=== PATIENT | female | born 1940 | race Caucasian/White ===

== ENCOUNTER 2019-03-26 14:04 | Inpatient (IN) ==
[2019-03-26] MEDS ORDERED: Ipratropium/Albuterol Neb 3 ML IH ONE (14:11)
[2019-03-26] MEDS ORDERED: 0.9 % Sodium Chloride 1,000 ML IVC SCH (14:15)
[2019-03-26 14:46] LABS: Basophils % 0.7 %; Eosinophils # 0.1 K/mcL (0.0-0.6); Eosinophils % 1.2 %; Hematocrit 33.6 % (35.3-44.9); Hemoglobin 9.7 g/dL (11.5-15.4); Immature Granulocytes % 0.3 % (0-4); Lymphocytes # 0.9 K/mcL (0.6-4.6); Lymphocytes % 14.3 %; Mean Corpuscular HGB Conc 28.9 g/dL (31.6-35.5); Mean Corpuscular Hemoglobin 23.7 pg (28.0-33.3); Mean Platelet Volume 10.2 fL (9.4-12.4); Monocytes # 0.7 K/mcL (0.0-1.3); Monocytes % 10.9 %; Platelet Count 316 K/mcL (140-400); Red Cell Distribution Width 16.7 % (11.5-14.5); Segmented Neutrophils % 72.6 %
[2019-03-26 14:47] LABS: Neutrophils # 4.4 K/mcL (1.6-8.9)
[2019-03-26 15:13] LABS: Bilirubin,Urine Negative (Negative); Blood,Urine Negative (Negative); Clarity,Urine Clear (Clear); Color,Urine Yellow (Yellow); Glucose,Urine (UA) Normal (Normal); Ketones,Urine Negative (Negative); Leukocyte Esterase,Urine Negative (Negative); Nitrite,Urine Negative (Negative); Protein,Urine Negative (Neg-Trace); Specific Gravity,Urine 1.011 (1.010-1.025); Urobilinogen,Urine Normal (Normal)
[2019-03-26 15:32] LABS: Alanine Aminotransferase 48 Units/L (7-52); Albumin 3.3 g/dL (3.5-5.7); Alkaline Phosphatase 66 Units/L (34-104); Aspartate Amino Transferase 46 Units/L (13-39); BUN/Creatinine Ratio 28 (6-26); Bilirubin,Total 0.5 mg/dL (0.3-1.0); Blood Urea Nitrogen 35 mg/dL (8-23); Calcium 8.4 mg/dL (8.6-10.3); Carbon Dioxide 30 mEq/L (23-29); Chloride 101 mEq/L (98-107); Globulin 3.4 g/dL (2.4-3.5); Glucose 177 mg/dL (70-105); Osmolality,Calculated 304 (280-300); Potassium 4.2 mEq/L (3.5-5.1); Sodium 141 mEq/L (136-145); Total Protein 6.7 g/dL (6.4-8.9); Troponin I < 0.03 ng/mL (< 0.04); eGFR For African Americans 49 (> 60); eGFR For Non-African Americans 41 (> 60)
[2019-03-26] MEDS ORDERED: Furosemide 40 MG/4 ML VIAL IVP ONE (15:37)
[2019-03-26 16:19] LABS: Hypochromasia Present (Not Present); Platelet Estimate Normal (Normal); Stomatocytes 1+ (Not Present)
[2019-03-26] MEDS ORDERED: Naloxone 0.4 MG/ML INJ IVP PRN (16:44)
[2019-03-26] MEDS ORDERED: D5% in Water 1,000 ML IVC PRN (16:45)
[2019-03-26] MEDS ORDERED: Dextrose Gel 15 GM/37.5 ML TUBE PO PRN ×2 (16:45)
[2019-03-26] MEDS ORDERED: *HR* Dextrose 50 % in Water (Syg) 50 ML SYRINGE IVP PRN (16:45)
[2019-03-26] MEDS: carvediloL 25 MG TABLET PO SCH (20:08)
[2019-03-26] MEDS: MOM Conc 10 ML UD.LIQ PO SCH (20:08)
[2019-03-26] MEDS: *HR* Dabigatran 150 MG CAPSULE PO SCH (20:08)
[2019-03-26] MEDS: Insulin DETEMIR 100 UNIT/ML X5UNITS SQ SCH (20:09)
[2019-03-26] MEDS: Ipratropium/Albuterol Neb 3 ML IH SCH (21:31)
[2019-03-26] MEDS ORDERED: Acetaminophen 325 MG TABLET PO ONE (23:33)
[2019-03-27] MEDS: Ipratropium/Albuterol Neb 3 ML IH SCH ×4 (04:08→21:56)
[2019-03-27 04:26] LABS: VBG HCO3 33 mEq/L (21-27); VBG PCO2 61 mmHg (41-51); VBG PH 7.34 pH Units (7.32-7.42); VBG PO2 75 mmHg (25-50)
[2019-03-27 04:28] LABS: Basophils % 0.6 %; Eosinophils # 0.1 K/mcL (0.0-0.6); Eosinophils % 1.7 %; Hematocrit 31.1 % (35.3-44.9); Hemoglobin 9.1 g/dL (11.5-15.4); Immature Granulocytes % 0.5 % (0-4); Lymphocytes # 1.1 K/mcL (0.6-4.6); Lymphocytes % 17.4 %; Mean Corpuscular HGB Conc 29.3 g/dL (31.6-35.5); Mean Corpuscular Hemoglobin 23.7 pg (28.0-33.3); Mean Platelet Volume 9.8 fL (9.4-12.4); Monocytes # 0.8 K/mcL (0.0-1.3); Monocytes % 11.9 %; Neutrophils # 4.3 K/mcL (1.6-8.9); Nucleated Red Blood Cells 0.3 /100 WBC (0); Platelet Count 269 K/mcL (140-400); Red Blood Count 3.84 M/mcL (3.82-4.97); Red Cell Distribution Width 16.7 % (11.5-14.5); Segmented Neutrophils % 67.9 %; White Blood Count 6.4 K/mcL (4.3-11.1)
[2019-03-27 04:54] LABS: % Iron Saturation 3 % (15-50); Iron 11 mcg/dL (50-170); Transferrin 277 mg/dL (203-362)
[2019-03-27 04:55] LABS: BUN/Creatinine Ratio 31 (6-26); Blood Urea Nitrogen 36 mg/dL (8-23); Calcium 8.4 mg/dL (8.6-10.3); Carbon Dioxide 30 mEq/L (23-29); Chloride 103 mEq/L (98-107); Glucose 84 mg/dL (70-105); Magnesium 2.2 mg/dL (1.6-2.6); Osmolality,Calculated 296 (280-300); Potassium 4.3 mEq/L (3.5-5.1); Sodium 139 mEq/L (136-145); Troponin I < 0.03 ng/mL (< 0.04); eGFR For African Americans 55 (> 60); eGFR For Non-African Americans 45 (> 60)
[2019-03-27 05:06] LABS: Ferritin 13 ng/mL (10-120)
[2019-03-27 05:12] LABS: Folate 11.4 ng/mL (3.0-16.0)
[2019-03-27] MEDS ORDERED: Iron Sucrose Complex 400 MG in 0.9 % Sodium Chloride 250 ML IVPB ONE (07:31)
[2019-03-27] MEDS ORDERED: Perflutren Lipid Microsphere 1.3 ML in 0.9 % Sodium Chloride 8.7 ML IVP ONE (08:26)
[2019-03-27] MEDS: Insulin LISPRO 300 UNITS/3 ML VIAL SQ SCH ×3 (09:57→16:45)
[2019-03-27] MEDS: *HR* Dabigatran 150 MG CAPSULE PO SCH ×2 (09:58→21:49)
[2019-03-27] MEDS: carvediloL 25 MG TABLET PO SCH ×2 (09:59→16:29)
[2019-03-27] MEDS: Furosemide 40 MG/4 ML VIAL IVP SCH ×2 (09:59→16:30)
[2019-03-27] MEDS: Cyanocobalamin (B-12) 1,000 MCG/ML VIAL SQ SCH (10:16)
[2019-03-27] MEDS: Insulin DETEMIR 100 UNIT/ML X5UNITS SQ SCH (21:35)
[2019-03-27] MEDS: MOM Conc 10 ML UD.LIQ PO SCH (21:49)
[2019-03-27] MEDS: traZODone 50 MG TABLET PO SCH (21:50)
[2019-03-27] MEDS: Multivit/Ca/Min/Fe/FA 1 TAB TABLET PO SCH (21:50)
[2019-03-27] MEDS: hydrOXYzine pamoate 25 MG CAPSULE PO PRN (21:50)
[2019-03-28] MEDS: Ipratropium/Albuterol Neb 3 ML IH SCH ×4 (03:36→22:35)
[2019-03-28 05:28] LABS: Hematocrit 29.6 % (35.3-44.9); Hemoglobin 8.6 g/dL (11.5-15.4); Mean Corpuscular HGB Conc 29.1 g/dL (31.6-35.5); Mean Corpuscular Hemoglobin 24.4 pg (28.0-33.3); Mean Corpuscular Volume 84.1 fL (83.0-100.0); Mean Platelet Volume 10.6 fL (9.4-12.4); Platelet Count 251 K/mcL (140-400); Red Blood Count 3.52 M/mcL (3.82-4.97); Red Cell Distribution Width 16.9 % (11.5-14.5); White Blood Count 6.4 K/mcL (4.3-11.1)
[2019-03-28 05:47] LABS: Calcium 8.4 mg/dL (8.6-10.3); Magnesium 2.4 mg/dL (1.6-2.6); Potassium 4.1 mEq/L (3.5-5.1)
[2019-03-28] MEDS: hydrOXYzine pamoate 25 MG CAPSULE PO PRN ×2 (05:50→20:46)
[2019-03-28] MEDS: *HR* Dabigatran 150 MG CAPSULE PO SCH ×2 (07:47→20:46)
[2019-03-28] MEDS: Insulin LISPRO 300 UNITS/3 ML VIAL SQ SCH ×3 (07:47→17:15)
[2019-03-28] MEDS: carvediloL 25 MG TABLET PO SCH ×2 (07:48→17:06)
[2019-03-28] MEDS: Multivit/Ca/Min/Fe/FA 1 TAB TABLET PO SCH (07:48)
[2019-03-28] MEDS: Cyanocobalamin (B-12) 1,000 MCG/ML VIAL SQ SCH (07:49)
[2019-03-28] MEDS: Furosemide 40 MG/4 ML VIAL IVP SCH (07:49)
[2019-03-28] MEDS: (Linaclotide [Linzess] 145 MCG) PO SCH (07:49)
[2019-03-28] MEDS: Spironolactone 25 MG TABLET PO SCH (17:36)
[2019-03-28] MEDS: traZODone 50 MG TABLET PO SCH (20:46)
[2019-03-28] MEDS: MOM Conc 10 ML UD.LIQ PO SCH (20:46)
[2019-03-28] MEDS: Azithromycin 500 MG in 0.9 % Sodium Chloride 250 ML IVPB SCH (20:46)
[2019-03-28] MEDS: Insulin DETEMIR 100 UNIT/ML X5UNITS SQ SCH (20:59)
[2019-03-28] MEDS: Ondansetron 4 MG/2 ML VIAL IVP PRN (21:53)
[2019-03-29] MEDS: Ipratropium/Albuterol Neb 3 ML IH SCH ×4 (04:19→22:35)
[2019-03-29 04:49] LABS: Basophils % 0.4 %; Nucleated Red Blood Cells 0.4 /100 WBC (0)
[2019-03-29 04:50] LABS: Eosinophils # 0.1 K/mcL (0.0-0.6); Eosinophils % 1.9 %; Hemoglobin 8.1 g/dL (11.5-15.4); Immature Granulocytes % 0.6 % (0-4); Lymphocytes # 0.9 K/mcL (0.6-4.6); Lymphocytes % 13.3 %; Mean Corpuscular HGB Conc 28.9 g/dL (31.6-35.5); Mean Corpuscular Hemoglobin 23.8 pg (28.0-33.3); Mean Corpuscular Volume 82.4 fL (83.0-100.0); Mean Platelet Volume 10.3 fL (9.4-12.4); Monocytes # 0.8 K/mcL (0.0-1.3); Monocytes % 11.7 %; Neutrophils # 4.9 K/mcL (1.6-8.9); Platelet Count 251 K/mcL (140-400); Red Cell Distribution Width 17.1 % (11.5-14.5); Segmented Neutrophils % 72.1 %; White Blood Count 6.8 K/mcL (4.3-11.1)
[2019-03-29 05:01] LABS: Calcium 7.2 mg/dL (8.6-10.3); Magnesium 2.4 mg/dL (1.6-2.6); Potassium 4.3 mEq/L (3.5-5.1)
[2019-03-29 05:16] LABS: Platelet Estimate Normal (Normal)
[2019-03-29 05:17] LABS: Anisocytosis 1+ (Not Present); Hypochromasia Present (Not Present)
[2019-03-29] MEDS: carvediloL 25 MG TABLET PO SCH ×2 (08:07→16:54)
[2019-03-29] MEDS: Multivit/Ca/Min/Fe/FA 1 TAB TABLET PO SCH (08:07)
[2019-03-29] MEDS: Cyanocobalamin (B-12) 1,000 MCG/ML VIAL SQ SCH (08:07)
[2019-03-29] MEDS: *HR* Dabigatran 150 MG CAPSULE PO SCH ×2 (08:07→21:14)
[2019-03-29] MEDS: Spironolactone 25 MG TABLET PO SCH (08:08)
[2019-03-29] MEDS: Iron Sucrose Complex 250 MG in 0.9 % Sodium Chloride 250 ML IVPB SCH (08:10)
[2019-03-29] MEDS: Insulin LISPRO 300 UNITS/3 ML VIAL SQ SCH ×3 (08:11→16:55)
[2019-03-29] MEDS: (Linaclotide [Linzess] 145 MCG) PO SCH (08:12)
[2019-03-29 08:53] LABS: Estimated Average Glucose 200 mg/dl
[2019-03-29] MEDS ORDERED: Furosemide 40 MG/4 ML VIAL IVP SCH (09:00)
[2019-03-29] MEDS: Azithromycin 500 MG in 0.9 % Sodium Chloride 250 ML IVPB SCH (21:13)
[2019-03-29] MEDS: Ondansetron 4 MG/2 ML VIAL IVP PRN (21:14)
[2019-03-29] MEDS: hydrOXYzine pamoate 25 MG CAPSULE PO PRN (21:14)
[2019-03-29] MEDS: Insulin DETEMIR 100 UNIT/ML X5UNITS SQ SCH (21:16)
[2019-03-29] MEDS: traZODone 50 MG TABLET PO SCH (21:16)
[2019-03-29] MEDS: MOM Conc 10 ML UD.LIQ PO SCH (21:16)
[2019-03-29] MEDS ORDERED: 0.9 % Sodium Chloride 500 ML IVC ONE (22:26)
[2019-03-29] MEDS ORDERED: Albumin 25% 25gram/100mL 25 GM/100 ML IV.SOLN IVPB ONE ×2 (22:26→22:27)
[2019-03-29] MEDS ORDERED: 0.9 % Sodium Chloride 1,000 ML ONE (22:30)
[2019-03-29 22:35] LABS: ABG Base Excess 2 mEq/L (-2 to 3); ABG HCO3 29 mEq/L (21-27); ABG Oxygen Saturation 94 % (95-98); ABG PCO2 53 mmHg (35-45); ABG PH 7.34 pH Units (7.32-7.45); ABG PO2 78 mmHg (85-104); ABG TCO2 30 mEq/L (20-26)
[2019-03-29] MEDS ORDERED: Isovue-370 500 ML BOTTLE IVP ONE (22:45)
[2019-03-29 22:52] LABS: Basophils % 0.4 %; Immature Granulocytes % 0.4 % (0-4); Nucleated Red Blood Cells 1.6 /100 WBC (0)
[2019-03-29 22:53] LABS: Eosinophils # 0.2 K/mcL (0.0-0.6); Eosinophils % 2.6 %; Hematocrit 29.6 % (35.3-44.9); Hemoglobin 8.4 g/dL (11.5-15.4); Lymphocytes # 1.2 K/mcL (0.6-4.6); Lymphocytes % 17.3 %; Mean Corpuscular HGB Conc 28.4 g/dL (31.6-35.5); Mean Corpuscular Hemoglobin 24.3 pg (28.0-33.3); Mean Corpuscular Volume 85.5 fL (83.0-100.0); Mean Platelet Volume 10.3 fL (9.4-12.4); Monocytes # 0.8 K/mcL (0.0-1.3); Monocytes % 12.3 %; Neutrophils # 4.6 K/mcL (1.6-8.9); Platelet Count 247 K/mcL (140-400); Red Blood Count 3.46 M/mcL (3.82-4.97); Red Cell Distribution Width 17.2 % (11.5-14.5); White Blood Count 6.8 K/mcL (4.3-11.1)
[2019-03-29 22:57] LABS: INR 1.9
[2019-03-29 23:00] LABS: Activated Partial Thrombo Time 71.1 Seconds (26.0-36.0)
[2019-03-29 23:16] LABS: Alanine Aminotransferase 28 Units/L (7-52); Albumin 3.1 g/dL (3.5-5.7); Alkaline Phosphatase 68 Units/L (34-104); Aspartate Amino Transferase 18 Units/L (13-39); BUN/Creatinine Ratio 25 (6-26); Bilirubin,Total 0.4 mg/dL (0.3-1.0); Blood Urea Nitrogen 50 mg/dL (8-23); Calcium 8.1 mg/dL (8.6-10.3); Carbon Dioxide 27 mEq/L (23-29); Chloride 99 mEq/L (98-107); Globulin 3.2 g/dL (2.4-3.5); Glucose 234 mg/dL (70-105); Hypochromasia Present (Not Present); Osmolality,Calculated 301 (280-300); Platelet Clumps Few (Not Present); Platelet Estimate Normal (Normal); Potassium 5.1 mEq/L (3.5-5.1); Sodium 135 mEq/L (136-145); Total Protein 6.3 g/dL (6.4-8.9); Troponin I < 0.03 ng/mL (< 0.04); eGFR For African Americans 30 (> 60); eGFR For Non-African Americans 25 (> 60)
[2019-03-29 23:17] LABS: Anisocytosis 1+ (Not Present)
[2019-03-30 03:22] LABS: Basophils % 0.4 %; Eosinophils # 0.1 K/mcL (0.0-0.6); Eosinophils % 1.9 %; Hematocrit 28.6 % (35.3-44.9); Hemoglobin 8.4 g/dL (11.5-15.4); Immature Granulocytes % 0.6 % (0-4); Lymphocytes # 0.8 K/mcL (0.6-4.6); Mean Corpuscular HGB Conc 29.4 g/dL (31.6-35.5); Mean Corpuscular Hemoglobin 24.2 pg (28.0-33.3); Mean Corpuscular Volume 82.4 fL (83.0-100.0); Mean Platelet Volume 10.4 fL (9.4-12.4); Monocytes # 0.8 K/mcL (0.0-1.3); Monocytes % 11.5 %; Neutrophils # 5.4 K/mcL (1.6-8.9); Nucleated Red Blood Cells 0.6 /100 WBC (0); Platelet Count 238 K/mcL (140-400); Red Blood Count 3.47 M/mcL (3.82-4.97); Red Cell Distribution Width 17.1 % (11.5-14.5); Segmented Neutrophils % 74.6 %; White Blood Count 7.2 K/mcL (4.3-11.1)
[2019-03-30] MEDS: Ipratropium/Albuterol Neb 3 ML IH SCH ×4 (03:31→22:56)
[2019-03-30 03:41] LABS: Calcium 8.2 mg/dL (8.6-10.3); Potassium 5.1 mEq/L (3.5-5.1)
[2019-03-30] MEDS: *HR* Dabigatran 150 MG CAPSULE PO SCH (08:41)
[2019-03-30] MEDS: Cyanocobalamin (B-12) 1,000 MCG/ML VIAL SQ SCH (08:42)
[2019-03-30] MEDS: Multivit/Ca/Min/Fe/FA 1 TAB TABLET PO SCH (08:43)
[2019-03-30] MEDS: Iron Sucrose Complex 250 MG in 0.9 % Sodium Chloride 250 ML IVPB SCH (08:43)
[2019-03-30] MEDS: Insulin LISPRO 300 UNITS/3 ML VIAL SQ SCH ×3 (08:55→17:05)
[2019-03-30] MEDS: hydrOXYzine pamoate 25 MG CAPSULE PO PRN ×2 (09:18→21:51)
[2019-03-30] MEDS: (Linaclotide [Linzess] 145 MCG) PO SCH (12:01)
[2019-03-30] MEDS: Nystatin POWDER 30 GM BOTTLE TP SCH ×2 (15:49→21:59)
[2019-03-30] MEDS: Lactulose Oral Soln 20 GM/30 ML UDC PO SCH ×2 (15:50→20:24)
[2019-03-30] MEDS: carvediloL 6.25 MG TABLET PO SCH (17:00)
[2019-03-30] MEDS: *HR* Dabigatran 75 MG CAPSULE PO SCH (20:23)
[2019-03-30] MEDS: traZODone 50 MG TABLET PO SCH (20:23)
[2019-03-30] MEDS: Insulin DETEMIR 100 UNIT/ML X5UNITS SQ SCH (20:24)
[2019-03-30] MEDS: Azithromycin 500 MG in 0.9 % Sodium Chloride 250 ML IVPB SCH (20:24)
[2019-03-30] MEDS: Ondansetron 4 MG/2 ML VIAL IVP PRN (21:47)
[2019-03-30] MEDS: Pantoprazole 40 MG in 0.9 % Sodium Chloride Mini Bag 100 ML IVC SCH (23:15)
[2019-03-30 23:39] LABS: Hematocrit 30.1 % (35.3-44.9); Hemoglobin 8.7 g/dL (11.5-15.4)
[2019-03-31] MEDS ORDERED: Mag Hydrox/Al Hydrox/Simeth 30 ML UDC PO ONE (00:23)
[2019-03-31] MEDS ORDERED: Acetaminophen IV 1,000 MG/100 ML INFUS..BTL IVPB ONE (03:12)
[2019-03-31 03:35] LABS: Mean Platelet Volume 10.1 fL (9.4-12.4)
[2019-03-31 03:37] LABS: Basophils % 0.5 %; Eosinophils # 0.1 K/mcL (0.0-0.6); Hemoglobin 9.2 g/dL (11.5-15.4); Immature Granulocytes % 1.2 % (0-4); Lymphocytes # 0.6 K/mcL (0.6-4.6); Lymphocytes % 9.5 %; Mean Corpuscular HGB Conc 28.8 g/dL (31.6-35.5); Mean Corpuscular Hemoglobin 23.8 pg (28.0-33.3); Mean Corpuscular Volume 82.9 fL (83.0-100.0); Monocytes # 0.5 K/mcL (0.0-1.3); Monocytes % 8.8 %; Neutrophils # 4.7 K/mcL (1.6-8.9); Nucleated Red Blood Cells 1.5 /100 WBC (0); Platelet Count 286 K/mcL (140-400); Red Blood Count 3.86 M/mcL (3.82-4.97); Red Cell Distribution Width 17.4 % (11.5-14.5)
[2019-03-31] MEDS: Ipratropium/Albuterol Neb 3 ML IH SCH ×4 (03:44→21:58)
[2019-03-31] MEDS: Pantoprazole 40 MG in 0.9 % Sodium Chloride Mini Bag 100 ML IVC SCH ×2 (03:52→10:15)
[2019-03-31 04:04] LABS: Albumin 3.7 g/dL (3.5-5.7); Albumin/Globulin Ratio 1.2 (1.1-2.2); Bilirubin,Direct 0.2 mg/dL (0.0-0.2); Bilirubin,Indirect 0.3 mg/dL (0.0-1.0); Bilirubin,Total 0.5 mg/dL (0.3-1.0); Total Protein 6.7 g/dL (6.4-8.9)
[2019-03-31 04:06] LABS: Calcium 8.7 mg/dL (8.6-10.3); Magnesium 3.3 mg/dL (1.6-2.6); Potassium 5.2 mEq/L (3.5-5.1)
[2019-03-31 04:23] LABS: Anisocytosis 1+ (Not Present); Hypochromasia Present (Not Present); Polychromasia 1+ (Not Present)
[2019-03-31 04:24] LABS: Basophilic Stippling 1+ (Not Present); Platelet Estimate Normal (Normal)
[2019-03-31] MEDS ORDERED: Morphine Sulfate 2 MG/ML SYRINGE IVP ONE (04:32)
[2019-03-31] MEDS ORDERED: CefOXitin 1,000 MG VIAL ONE (05:06)
[2019-03-31] MEDS ORDERED: Heparin 1,000 UNITS/500 mL 500 ML ONE (05:11)
[2019-03-31] MEDS ORDERED: *HR* Rocuronium Bromide 50 MG/5 ML VIAL ONE (05:25)
[2019-03-31] MEDS ORDERED: *HR* Etomidate 40 MG/20 ML VIAL IVP ONE (05:25)
[2019-03-31] MEDS ORDERED: Lidocaine -MPF 2% 2 ML VIAL ONE (05:25)
[2019-03-31] MEDS ORDERED: *HR* Succinylcholine 200 MG/10 ML VIAL IVP ONE (05:25)
[2019-03-31] MEDS ORDERED: Dexamethasone 4 MG/ML VIAL ONE (05:25)
[2019-03-31] MEDS ORDERED: Ondansetron 4 MG/2 ML VIAL ONE (05:25)
[2019-03-31] MEDS ORDERED: Ringers Solution, Lactated 1,000 ML ONE (05:25)
[2019-03-31 05:36] LABS: Hepatitis B Surface Antigen Nonreactive (Nonreactive)
[2019-03-31] MEDS ORDERED: *HR* Vasopressin 20 UNIT/ML VIAL ONE (05:43)
[2019-03-31 06:05] LABS: Hepatitis C Virus Antibody Nonreactive (Nonreactive)
[2019-03-31 06:06] LABS: Hepatitis A Antibody IgM Nonreactive (Nonreactive)
[2019-03-31] MEDS ORDERED: *HR* FentaNYL (PF) 100 MCG/2 ML VIAL ONE (06:24)
[2019-03-31] MEDS ORDERED: *HR* Phenylephrine 10 MG/ML VIAL ONE (06:51)
[2019-03-31] MEDS ORDERED: Pantoprazole 40 MG in 0.9 % Sodium Chloride Mini Bag 100 ML IVC SCH (09:10)
[2019-03-31] MEDS ORDERED: Ondansetron 4 MG/2 ML VIAL IVP PRN (09:10)
[2019-03-31] MEDS ORDERED: Naloxone 0.4 MG/ML INJ IVP PRN (09:10)
[2019-03-31] MEDS ORDERED: Dextrose Gel 15 GM/37.5 ML TUBE PO PRN ×2 (09:10)
[2019-03-31] MEDS ORDERED: D5% in Water 1,000 ML IVC PRN (09:10)
[2019-03-31] MEDS ORDERED: Artificial Tears SOLN 15 ML BOTTLE BOTH EYES PRN (09:32)
[2019-03-31] MEDS: *HR* Dextrose 50 % in Water (Syg) 50 ML SYRINGE IVP PRN ×2 (09:40→23:45)
[2019-03-31] MEDS: Dexmedetomidine HCl 400 MCG/100 ML MLS IVC SCH ×3 (09:50→20:00)
[2019-03-31] MEDS ORDERED: *HR* FentaNYL (PF) 100 MCG/2 ML VIAL IVP ONE (10:01)
[2019-03-31] MEDS ORDERED: *HR* LORazepam 2 MG/ML VIAL ONE (10:02)
[2019-03-31] MEDS ORDERED: *HR* LORazepam 2 MG/ML VIAL IVP ONE (10:08)
[2019-03-31] MEDS: carvediloL 6.25 MG TABLET PO SCH (10:14)
[2019-03-31] MEDS: *HR* Dabigatran 75 MG CAPSULE PO SCH (10:15)
[2019-03-31] MEDS: Lactulose Oral Soln 20 GM/30 ML UDC PO SCH (10:15)
[2019-03-31] MEDS: Insulin LISPRO 300 UNITS/3 ML VIAL SQ SCH ×3 (10:15→18:19)
[2019-03-31] MEDS: Nystatin POWDER 30 GM BOTTLE TP SCH ×3 (10:15→20:00)
[2019-03-31] MEDS: (Linaclotide [Linzess] 145 MCG) PO SCH (10:15)
[2019-03-31] MEDS: Cyanocobalamin (B-12) 1,000 MCG/ML VIAL SQ SCH (10:16)
[2019-03-31] MEDS: Multivit/Ca/Min/Fe/FA 1 TAB TABLET PO SCH (10:16)
[2019-03-31] MEDS: FentaNYL (PF) 1,000 MCG in 0.9 % Sodium Chloride 80 ML IVC SCH (10:17)
[2019-03-31 10:42] LABS: ABG Base Excess 3 mEq/L (-2 to 3); ABG HCO3 29 mEq/L (21-27); ABG Oxygen Saturation 100 % (95-98); ABG PCO2 49 mmHg (35-45); ABG PH 7.37 pH Units (7.32-7.45); ABG PO2 367 mmHg (85-104); ABG TCO2 30 mEq/L (20-26); Blood Gas Modality AF; Blood Gas VT 450 cc
[2019-03-31] MEDS ORDERED: Insulin LISPRO 300 UNITS/3 ML VIAL SQ SCH (12:00)
[2019-03-31] MEDS: Phenylephrine 10 MG in 0.9 % Sodium Chloride 250 ML IVC SCH (13:46)
[2019-03-31] MEDS: Artificial Tears SOLN 15 ML BOTTLE BOTH EYES SCH ×3 (13:50→19:59)
[2019-03-31] MEDS: Norepinephrine 4 MG in 0.9 % Sodium Chloride 250 ML IVC SCH ×2 (13:50→21:50)
[2019-03-31 14:27] LABS: Basophils % 0.1 %; Hematocrit 25.5 % (35.3-44.9); Immature Granulocytes % 0.4 % (0-4); Lymphocytes # 0.5 K/mcL (0.6-4.6); Lymphocytes % 4.3 %; Mean Corpuscular HGB Conc 29.4 g/dL (31.6-35.5); Mean Corpuscular Hemoglobin 24.1 pg (28.0-33.3); Mean Platelet Volume 9.9 fL (9.4-12.4); Monocytes # 0.8 K/mcL (0.0-1.3); Monocytes % 7.1 %; Neutrophils # 9.6 K/mcL (1.6-8.9); Nucleated Red Blood Cells 0.4 /100 WBC (0); Platelet Count 258 K/mcL (140-400); Red Blood Count 3.11 M/mcL (3.82-4.97); Red Cell Distribution Width 17.2 % (11.5-14.5); Segmented Neutrophils % 88.1 %
[2019-03-31 14:28] LABS: Hemoglobin 7.5 g/dL (11.5-15.4); White Blood Count 10.9 K/mcL (4.3-11.1)
[2019-03-31 14:35] LABS: INR 2.6; Prothrombin Time 29.8 Seconds (9.4-12.1)
[2019-03-31 14:37] LABS: Activated Partial Thrombo Time 76.7 Seconds (26.0-36.0)
[2019-03-31 14:40] LABS: Magnesium 2.9 mg/dL (1.6-2.6)
[2019-03-31] MEDS ORDERED: 0.9 % Sodium Chloride 500 ML ONE (15:26)
[2019-03-31] MEDS: Piperacillin/Tazobactam 3.375 GM in 0.9 % Sodium Chloride Mini Bag 100 ML IVPB SCH (18:27)
[2019-03-31] MEDS: Pantoprazole 40 MG VIAL IVP SCH (18:27)
[2019-03-31] MEDS ORDERED: Azithromycin 500 MG in 0.9 % Sodium Chloride 250 ML IVPB SCH (20:00)
[2019-03-31] MEDS: Chlorhexidine Rinse 15 ML MOUTHWASH MM SCH (20:00)
[2019-03-31 20:57] LABS: Bilirubin,Urine Negative (Negative); Blood,Urine Large (Negative); Clarity,Urine Cloudy (Clear); Color,Urine Yellow (Yellow); Glucose,Urine (UA) Normal (Normal); Ketones,Urine Negative (Negative); Leukocyte Esterase,Urine Negative (Negative); Nitrite,Urine Negative (Negative); Protein,Urine 30 mg/dL (Neg-Trace); Specific Gravity,Urine 1.022 (1.010-1.025); Urobilinogen,Urine Normal (Normal)
[2019-03-31 21:00] LABS: Bacteria,Urine None Seen per hpf (None-Few); Squamous Epithelial Cell,Urine Many per lpf (None-Few); WBC,Urine 15-30 per hpf (0-3)
[2019-03-31] MEDS ORDERED: Insulin DETEMIR 100 UNIT/ML X5UNITS SQ SCH (21:00)
[2019-03-31 21:05] LABS: Sodium, Urine 16.2 mEq/L
[2019-03-31 21:15] LABS: Uric Acid 9.1 mg/dL (2.3-7.6)
[2019-03-31 21:22] LABS: RBC,Urine 15-30 per hpf (0-3)
[2019-03-31 21:34] LABS: Calcium 8.1 mg/dL (8.6-10.3); Potassium 5.9 mEq/L (3.5-5.1)
[2019-03-31 21:36] LABS: ABG Base Excess -1 mEq/L (-2 to 3); ABG HCO3 24 mEq/L (21-27); ABG Oxygen Saturation 98 % (95-98); ABG PCO2 40 mmHg (35-45); ABG PH 7.39 pH Units (7.32-7.45); ABG PO2 108 mmHg (85-104); ABG TCO2 25 mEq/L (20-26); Blood Gas Modality AF; Blood Gas VT 450 cc
[2019-03-31] MEDS: Budesonide/Formoterol 160/4.5 1 PUFF INH IH SCH (21:59)
[2019-03-31 22:32] LABS: Basophils % 0.1 %; Hematocrit 28.9 % (35.3-44.9); Immature Granulocytes % 0.5 % (0-4); Lymphocytes # 0.6 K/mcL (0.6-4.6); Lymphocytes % 4.7 %; Mean Corpuscular HGB Conc 31.1 g/dL (31.6-35.5); Mean Corpuscular Hemoglobin 26.2 pg (28.0-33.3); Mean Platelet Volume 10.9 fL (9.4-12.4); Monocytes # 0.8 K/mcL (0.0-1.3); Monocytes % 6.4 %; Neutrophils # 11.5 K/mcL (1.6-8.9); Nucleated Red Blood Cells 0.4 /100 WBC (0); Platelet Count 252 K/mcL (140-400); Red Blood Count 3.44 M/mcL (3.82-4.97); Red Cell Distribution Width 16.5 % (11.5-14.5); Segmented Neutrophils % 88.3 %; White Blood Count 13.1 K/mcL (4.3-11.1)
[2019-03-31 22:35] LABS: Hyaline Casts,Urine Few per lpf (None-Few); Renal Epithelial Cells,Urine Few per hpf (None-Few)
[2019-03-31] MEDS ORDERED: Calcium Gluconate 1gm/50mL 1 GM/50 ML BAG IVPB ONE (23:22)
[2019-03-31] MEDS ORDERED: Insulin Human Regular 10 UNIT in 0.9 % Sodium Chloride 10 ML IV ONE (23:27)
[2019-03-31] MEDS: Albuterol 2.5 MG/3 ML NEBULIZER IH SCH (23:34)
[2019-04-01] MEDS: Artificial Tears SOLN 15 ML BOTTLE BOTH EYES SCH ×6 (00:12→20:29)
[2019-04-01] MEDS: Insulin LISPRO 300 UNITS/3 ML VIAL SQ SCH ×4 (00:13→17:43)
[2019-04-01] MEDS: FentaNYL (PF) 1,000 MCG in 0.9 % Sodium Chloride 80 ML IVC SCH ×4 (01:01→22:00)
[2019-04-01] MEDS: Albuterol 2.5 MG/3 ML NEBULIZER IH SCH ×3 (01:25→05:24)
[2019-04-01] MEDS: Dexmedetomidine HCl 400 MCG/100 ML MLS IVC SCH ×5 (03:30→22:00)
[2019-04-01] MEDS: Ipratropium/Albuterol Neb 3 ML IH SCH ×4 (03:47→21:32)
[2019-04-01 04:29] LABS: Basophils % 0.1 %; Hematocrit 28.2 % (35.3-44.9); Hemoglobin 8.7 g/dL (11.5-15.4); Immature Granulocytes % 0.3 % (0-4); Lymphocytes # 0.8 K/mcL (0.6-4.6); Lymphocytes % 5.5 %; Mean Corpuscular HGB Conc 30.9 g/dL (31.6-35.5); Mean Corpuscular Hemoglobin 25.7 pg (28.0-33.3); Mean Corpuscular Volume 83.4 fL (83.0-100.0); Mean Platelet Volume 10.5 fL (9.4-12.4); Monocytes % 6.5 %; Neutrophils # 13.4 K/mcL (1.6-8.9); Nucleated Red Blood Cells 0.1 /100 WBC (0); Platelet Count 222 K/mcL (140-400); Red Blood Count 3.38 M/mcL (3.82-4.97); Red Cell Distribution Width 16.9 % (11.5-14.5); Segmented Neutrophils % 87.6 %; White Blood Count 15.3 K/mcL (4.3-11.1)
[2019-04-01 04:43] LABS: Albumin 2.8 g/dL (3.5-5.7); Albumin/Globulin Ratio 1.2 (1.1-2.2); Bilirubin,Direct 0.3 mg/dL (0.0-0.2); Bilirubin,Indirect 0.5 mg/dL (0.0-1.0); Bilirubin,Total 0.8 mg/dL (0.3-1.0); Calcium 8.3 mg/dL (8.6-10.3); Globulin 2.3 g/dL (2.4-3.5); Potassium 5.7 mEq/L (3.5-5.1); Total Protein 5.1 g/dL (6.4-8.9)
[2019-04-01 04:47] LABS: ABG Base Excess 5 mEq/L (-2 to 3); ABG HCO3 29 mEq/L (21-27); ABG Oxygen Saturation 95 % (95-98); ABG PCO2 39 mmHg (35-45); ABG PH 7.48 pH Units (7.32-7.45); ABG PO2 73 mmHg (85-104); ABG TCO2 30 mEq/L (20-26); Blood Gas Modality AF; Blood Gas VT 450 cc
[2019-04-01] MEDS: Norepinephrine 4 MG in 0.9 % Sodium Chloride 250 ML IVC SCH ×2 (05:00→05:27)
[2019-04-01] MEDS: Pantoprazole 40 MG VIAL IVP SCH ×2 (05:55→17:43)
[2019-04-01] MEDS: Piperacillin/Tazobactam 3.375 GM in 0.9 % Sodium Chloride Mini Bag 100 ML IVPB SCH ×2 (05:55→16:39)
[2019-04-01] MEDS: Budesonide/Formoterol 160/4.5 1 PUFF INH IH SCH ×2 (09:33→21:32)
[2019-04-01] MEDS ORDERED: Acetaminophen IV 500 MG/50 ML INFUS..BTL IVPB PRN (09:48)
[2019-04-01] MEDS: *HR* Heparin 5,000 UNIT/ML VIAL SQ SCH ×3 (09:51→23:20)
[2019-04-01] MEDS: Chlorhexidine Rinse 15 ML MOUTHWASH MM SCH ×2 (09:51→20:27)
[2019-04-01] MEDS: Nystatin POWDER 30 GM BOTTLE TP SCH ×3 (09:52→20:29)
[2019-04-01] MEDS: Phenylephrine 10 MG in 0.9 % Sodium Chloride 250 ML IVC SCH (09:53)
[2019-04-01 10:56] LABS: INR 2.8; Prothrombin Time 31.3 Seconds (9.4-12.1)
[2019-04-02] MEDS: Artificial Tears SOLN 15 ML BOTTLE BOTH EYES SCH ×6 (00:13→20:42)
[2019-04-02] MEDS: Insulin LISPRO 300 UNITS/3 ML VIAL SQ SCH ×5 (00:13→20:43)
[2019-04-02] MEDS: Piperacillin/Tazobactam 3.375 GM in 0.9 % Sodium Chloride Mini Bag 100 ML IVPB SCH ×3 (00:13→17:32)
[2019-04-02] MEDS: Dexmedetomidine HCl 400 MCG/100 ML MLS IVC SCH ×6 (01:23→23:27)
[2019-04-02] MEDS: Norepinephrine 4 MG in 0.9 % Sodium Chloride 250 ML IVC SCH ×2 (02:10→21:30)
[2019-04-02] MEDS: Ipratropium/Albuterol Neb 3 ML IH SCH ×4 (04:19→21:45)
[2019-04-02] MEDS: FentaNYL (PF) 1,000 MCG in 0.9 % Sodium Chloride 80 ML IVC SCH ×4 (04:31→19:40)
[2019-04-02 04:41] LABS: VBG Ionized Calcium 1.15 mmol/L (1.15-1.35)
[2019-04-02 04:44] LABS: Basophils % 0.2 %; Hematocrit 26.4 % (35.3-44.9); Immature Granulocytes % 1.1 % (0-4); Lymphocytes # 1.3 K/mcL (0.6-4.6); Lymphocytes % 7.8 %; Mean Corpuscular HGB Conc 30.3 g/dL (31.6-35.5); Mean Corpuscular Hemoglobin 25.5 pg (28.0-33.3); Mean Corpuscular Volume 84.1 fL (83.0-100.0); Mean Platelet Volume 10.9 fL (9.4-12.4); Monocytes # 1.1 K/mcL (0.0-1.3); Monocytes % 6.8 %; Neutrophils # 13.9 K/mcL (1.6-8.9); Platelet Count 216 K/mcL (140-400); Red Blood Count 3.14 M/mcL (3.82-4.97); Red Cell Distribution Width 18.5 % (11.5-14.5); Segmented Neutrophils % 84.1 %; White Blood Count 16.5 K/mcL (4.3-11.1)
[2019-04-02 04:50] LABS: ABG Base Excess 3 mEq/L (-2 to 3); ABG HCO3 29 mEq/L (21-27); ABG Oxygen Saturation 98 % (95-98); ABG PCO2 50 mmHg (35-45); ABG PH 7.37 pH Units (7.32-7.45); ABG PO2 111 mmHg (85-104); ABG TCO2 30 mEq/L (20-26); Blood Gas Modality AF; Blood Gas VT 400 cc
[2019-04-02 04:56] LABS: Albumin 2.8 g/dL (3.5-5.7); Albumin/Globulin Ratio 1.2 (1.1-2.2); Bilirubin,Direct 0.3 mg/dL (0.0-0.2); Bilirubin,Indirect 0.4 mg/dL (0.0-1.0); Bilirubin,Total 0.7 mg/dL (0.3-1.0); Calcium 8.1 mg/dL (8.6-10.3); Globulin 2.3 g/dL (2.4-3.5); Magnesium 2.9 mg/dL (1.6-2.6); Phosphorous 5.5 mg/dL (2.7-4.5); Potassium 5.5 mEq/L (3.5-5.1); Total Protein 5.1 g/dL (6.4-8.9)
[2019-04-02] MEDS: Pantoprazole 40 MG VIAL IVP SCH ×2 (05:51→17:31)
[2019-04-02] MEDS: *HR* Heparin 5,000 UNIT/ML VIAL SQ SCH ×3 (05:51→21:12)
[2019-04-02 06:05] LABS: INR 2.1; Prothrombin Time 24.2 Seconds (9.4-12.1)
[2019-04-02 06:08] LABS: Activated Partial Thrombo Time 52.3 Seconds (26.0-36.0)
[2019-04-02 07:30] LABS: Bartonella Source SERUM
[2019-04-02] MEDS: Nystatin POWDER 30 GM BOTTLE TP SCH ×3 (08:46→20:43)
[2019-04-02] MEDS: Chlorhexidine Rinse 15 ML MOUTHWASH MM SCH ×2 (08:46→20:42)
[2019-04-02] MEDS: Phenylephrine 10 MG in 0.9 % Sodium Chloride 250 ML IVC SCH (08:46)
[2019-04-02] MEDS: Budesonide/Formoterol 160/4.5 1 PUFF INH IH SCH ×2 (09:10→21:45)
[2019-04-02 11:02] LABS: Calcium 8.1 mg/dL (8.6-10.3); Potassium 5.2 mEq/L (3.5-5.1)
[2019-04-02] MEDS ORDERED: D10% in Water 500 ML IVC PRN (11:34)
[2019-04-02] MEDS ORDERED: *HR* Heparin 5,000 UNIT/ML VIAL ONE (13:51)
[2019-04-02] MEDS: *HR* LORazepam 2 MG/ML VIAL IVP PRN (13:59)
[2019-04-02 14:19] LABS: Bartonella Species PCR NOT DETECTED
[2019-04-02] MEDS ORDERED: Calcium Gluconate 1gm/50mL 1 GM/50 ML BAG IVPB PRN (16:56)
[2019-04-02] MEDS ORDERED: Clinimix 5%-20% SOLUTION 2,000 ML with MVI, adult with vitamin K 10 ML, Sodium Chlori... IVC SCH (17:00)
[2019-04-02] MEDS: 0.9 % Sodium Chloride 1,000 ML PRIME SCH ×2 (17:34→18:06)
[2019-04-02] MEDS: PrismaSATE BGK 4/2.5 5,000 ML CRRT SCH ×4 (17:35→22:18)
[2019-04-02] MEDS: Calcium Chloride 4,000 MG in 0.9 % Sodium Chloride 1,000 ML CRRT SCH (18:05)
[2019-04-02 18:26] LABS: VBG Ionized Calcium 1.14 mmol/L (1.15-1.35)
[2019-04-02 18:28] LABS: Prothrombin Time 22.4 Seconds (9.4-12.1)
[2019-04-02 18:31] LABS: Activated Partial Thrombo Time 47.2 Seconds (26.0-36.0)
[2019-04-02 20:18] LABS: VBG Ionized Calcium 1.05 mmol/L (1.15-1.35)
[2019-04-02 22:16] LABS: VBG Ionized Calcium 1.07 mmol/L (1.15-1.35)
[2019-04-03 00:16] LABS: VBG Ionized Calcium 1.06 mmol/L (1.15-1.35)
[2019-04-03] MEDS: Piperacillin/Tazobactam 3.375 GM in 0.9 % Sodium Chloride Mini Bag 100 ML IVPB SCH ×3 (00:17→15:14)
[2019-04-03] MEDS: Artificial Tears SOLN 15 ML BOTTLE BOTH EYES SCH ×6 (00:21→20:27)
[2019-04-03] MEDS: Insulin LISPRO 300 UNITS/3 ML VIAL SQ SCH ×6 (00:21→20:27)
[2019-04-03] MEDS: PrismaSATE BGK 4/2.5 5,000 ML CRRT SCH ×9 (02:33→22:36)
[2019-04-03 02:37] LABS: VBG Ionized Calcium 1.13 mmol/L (1.15-1.35)
[2019-04-03] MEDS: Dexmedetomidine HCl 400 MCG/100 ML MLS IVC SCH ×5 (02:43→21:30)
[2019-04-03] MEDS: Ipratropium/Albuterol Neb 3 ML IH SCH ×4 (03:36→21:35)
[2019-04-03 03:45] LABS: Basophils % 0.2 %; Eosinophils # 0.2 K/mcL (0.0-0.6); Eosinophils % 1.3 %; Hematocrit 25.2 % (35.3-44.9); Hemoglobin 7.6 g/dL (11.5-15.4); Immature Granulocytes % 0.7 % (0-4); Lymphocytes # 1.3 K/mcL (0.6-4.6); Lymphocytes % 8.9 %; Mean Corpuscular HGB Conc 30.2 g/dL (31.6-35.5); Mean Corpuscular Hemoglobin 26.5 pg (28.0-33.3); Mean Corpuscular Volume 87.8 fL (83.0-100.0); Mean Platelet Volume 10.6 fL (9.4-12.4); Monocytes # 0.7 K/mcL (0.0-1.3); Monocytes % 4.8 %; Neutrophils # 11.9 K/mcL (1.6-8.9); Nucleated Red Blood Cells 0.1 /100 WBC (0); Platelet Count 182 K/mcL (140-400); Red Blood Count 2.87 M/mcL (3.82-4.97); Red Cell Distribution Width 18.6 % (11.5-14.5); Segmented Neutrophils % 84.1 %; White Blood Count 14.1 K/mcL (4.3-11.1)
[2019-04-03 03:52] LABS: Calcium 8.1 mg/dL (8.6-10.3); Magnesium 2.4 mg/dL (1.6-2.6); Phosphorous 2.9 mg/dL (2.7-4.5); Potassium 4.1 mEq/L (3.5-5.1)
[2019-04-03 04:26] LABS: VBG Ionized Calcium 1.14 mmol/L (1.15-1.35)
[2019-04-03 04:40] LABS: ABG Base Excess 3 mEq/L (-2 to 3); ABG HCO3 31 mEq/L (21-27); ABG Oxygen Saturation 94 % (95-98); ABG PCO2 64 mmHg (35-45); ABG PH 7.29 pH Units (7.32-7.45); ABG PO2 82 mmHg (85-104); ABG TCO2 33 mEq/L (20-26); Blood Gas Modality ASSIST CONTROL; Blood Gas VT 400 cc
[2019-04-03] MEDS: FentaNYL (PF) 1,000 MCG in 0.9 % Sodium Chloride 80 ML IVC SCH ×4 (05:55→18:00)
[2019-04-03] MEDS: *HR* Heparin 5,000 UNIT/ML VIAL SQ SCH ×3 (05:56→22:58)
[2019-04-03] MEDS: Pantoprazole 40 MG VIAL IVP SCH ×2 (05:56→17:19)
[2019-04-03 06:41] LABS: Hematocrit 25.1 % (35.3-44.9); Hemoglobin 7.9 g/dL (11.5-15.4)
[2019-04-03 06:59] LABS: ABG Base Excess 3 mEq/L (-2 to 3); ABG HCO3 30 mEq/L (21-27); ABG Oxygen Saturation 99 % (95-98); ABG PCO2 59 mmHg (35-45); ABG PH 7.31 pH Units (7.32-7.45); ABG PO2 149 mmHg (85-104); ABG TCO2 32 mEq/L (20-26); Blood Gas Modality ASSIST CONTROL; Blood Gas VT 400 cc
[2019-04-03] MEDS: Chlorhexidine Rinse 15 ML MOUTHWASH MM SCH ×2 (07:49→20:27)
[2019-04-03] MEDS: Nystatin POWDER 30 GM BOTTLE TP SCH ×3 (07:50→20:27)
[2019-04-03 10:07] LABS: VBG Ionized Calcium 1.29 mmol/L (1.15-1.35)
[2019-04-03] MEDS: Phenylephrine 10 MG in 0.9 % Sodium Chloride 250 ML IVC SCH (11:23)
[2019-04-03] MEDS: Budesonide/Formoterol 160/4.5 1 PUFF INH IH SCH ×2 (11:59→21:35)
[2019-04-03] MEDS: Calcium Chloride 4,000 MG in 0.9 % Sodium Chloride 1,000 ML CRRT SCH (13:00)
[2019-04-03 16:08] LABS: VBG Ionized Calcium 1.37 mmol/L (1.15-1.35)
[2019-04-03] MEDS ORDERED: Clinimix E 5%-15% SOLUTION 2,000 ML with MVI, adult with vitamin K 10 ML IVC SCH (17:00)
[2019-04-03 17:57] LABS: VBG Ionized Calcium 1.36 mmol/L (1.15-1.35)
[2019-04-03 20:20] LABS: VBG Ionized Calcium 1.23 mmol/L (1.15-1.35)
[2019-04-03 22:53] LABS: VBG Ionized Calcium 1.25 mmol/L (1.15-1.35)
[2019-04-04] MEDS: Norepinephrine 4 MG in 0.9 % Sodium Chloride 250 ML IVC SCH (00:05)
[2019-04-04] MEDS: Artificial Tears SOLN 15 ML BOTTLE BOTH EYES SCH ×7 (00:11→23:58)
[2019-04-04] MEDS: Piperacillin/Tazobactam 3.375 GM in 0.9 % Sodium Chloride Mini Bag 100 ML IVPB SCH ×4 (00:11→23:58)
[2019-04-04] MEDS: FentaNYL (PF) 1,000 MCG in 0.9 % Sodium Chloride 80 ML IVC SCH ×3 (00:19→20:39)
[2019-04-04] MEDS: Insulin LISPRO 300 UNITS/3 ML VIAL SQ SCH ×7 (01:46→23:57)
[2019-04-04] MEDS: Ipratropium/Albuterol Neb 3 ML IH SCH ×4 (03:44→21:16)
[2019-04-04] MEDS: Dexmedetomidine HCl 400 MCG/100 ML MLS IVC SCH ×3 (03:54→20:39)
[2019-04-04] MEDS: PrismaSATE BGK 4/2.5 5,000 ML CRRT SCH ×7 (03:56→21:56)
[2019-04-04 04:17] LABS: Basophils % 0.3 %; Eosinophils # 0.3 K/mcL (0.0-0.6); Hematocrit 25.4 % (35.3-44.9); Hemoglobin 7.6 g/dL (11.5-15.4); Immature Granulocytes % 0.9 % (0-4); Lymphocytes # 0.7 K/mcL (0.6-4.6); Lymphocytes % 6.2 %; Mean Corpuscular HGB Conc 29.9 g/dL (31.6-35.5); Mean Corpuscular Hemoglobin 26.2 pg (28.0-33.3); Mean Corpuscular Volume 87.6 fL (83.0-100.0); Mean Platelet Volume 10.9 fL (9.4-12.4); Monocytes # 0.8 K/mcL (0.0-1.3); Monocytes % 7.4 %; Neutrophils # 8.9 K/mcL (1.6-8.9); Nucleated Red Blood Cells 0.2 /100 WBC (0); Platelet Count 197 K/mcL (140-400); Red Cell Distribution Width 18.6 % (11.5-14.5); Segmented Neutrophils % 82.2 %; White Blood Count 10.8 K/mcL (4.3-11.1)
[2019-04-04 04:22] LABS: VBG Ionized Calcium 1.27 mmol/L (1.15-1.35)
[2019-04-04 04:23] LABS: INR 1.5; Prothrombin Time 17.1 Seconds (9.4-12.1)
[2019-04-04 04:34] LABS: Alanine Aminotransferase 226 Units/L (7-52); Albumin 2.3 g/dL (3.5-5.7); Alkaline Phosphatase 52 Units/L (34-104); Aspartate Amino Transferase 81 Units/L (13-39); BUN/Creatinine Ratio 33 (6-26); Bilirubin,Total 0.8 mg/dL (0.3-1.0); Blood Urea Nitrogen 26 mg/dL (8-23); Calcium 8.9 mg/dL (8.6-10.3); Carbon Dioxide 30 mEq/L (23-29); Chloride 105 mEq/L (98-107); Globulin 2.4 g/dL (2.4-3.5); Glucose 172 mg/dL (70-105); Magnesium 2.1 mg/dL (1.6-2.6); Osmolality,Calculated 297 (280-300); Phosphorous 2.3 mg/dL (2.7-4.5); Potassium 4.2 mEq/L (3.5-5.1); Sodium 139 mEq/L (136-145); Total Protein 4.7 g/dL (6.4-8.9); eGFR For African Americans > 60 (> 60); eGFR For Non-African Americans > 60 (> 60)
[2019-04-04 05:10] LABS: ABG Base Excess 7 mEq/L (-2 to 3); ABG HCO3 32 mEq/L (21-27); ABG Oxygen Saturation 96 % (95-98); ABG PCO2 52 mmHg (35-45); ABG PO2 85 mmHg (85-104); ABG TCO2 34 mEq/L (20-26); Blood Gas Modality ASSIST CONTROL; Blood Gas VT 400 cc
[2019-04-04] MEDS ORDERED: *HR* Heparin 5,000 UNIT/ML VIAL ONE ×2 (05:27→06:18)
[2019-04-04] MEDS: Pantoprazole 40 MG VIAL IVP SCH ×2 (06:32→16:59)
[2019-04-04] MEDS: *HR* Heparin 5,000 UNIT/ML VIAL SQ SCH ×3 (06:34→20:28)
[2019-04-04] MEDS: *HR* Heparin 5,000 UNIT/ML VIAL CRRT PRN (06:47)
[2019-04-04] MEDS: Chlorhexidine Rinse 15 ML MOUTHWASH MM SCH ×2 (08:49→20:28)
[2019-04-04] MEDS: Calcium Chloride 4,000 MG in 0.9 % Sodium Chloride 1,000 ML CRRT SCH (08:50)
[2019-04-04] MEDS: Nystatin POWDER 30 GM BOTTLE TP SCH ×3 (08:50→20:30)
[2019-04-04] MEDS: Phenylephrine 10 MG in 0.9 % Sodium Chloride 250 ML IVC SCH (08:51)
[2019-04-04 09:22] LABS: VBG Ionized Calcium 1.35 mmol/L (1.15-1.35)
[2019-04-04 09:22] LABS: Basophils % 0.3 %; Eosinophils # 0.3 K/mcL (0.0-0.6); Eosinophils % 2.8 %; Hematocrit 23.7 % (35.3-44.9); Immature Granulocytes % 0.9 % (0-4); Lymphocytes # 0.9 K/mcL (0.6-4.6); Lymphocytes % 8.9 %; Mean Corpuscular HGB Conc 29.5 g/dL (31.6-35.5); Mean Corpuscular Hemoglobin 26.5 pg (28.0-33.3); Mean Corpuscular Volume 89.8 fL (83.0-100.0); Mean Platelet Volume 10.8 fL (9.4-12.4); Monocytes # 0.8 K/mcL (0.0-1.3); Monocytes % 8.4 %; Neutrophils # 7.8 K/mcL (1.6-8.9); Nucleated Red Blood Cells 0.3 /100 WBC (0); Platelet Count 163 K/mcL (140-400); Red Blood Count 2.64 M/mcL (3.82-4.97); Red Cell Distribution Width 18.8 % (11.5-14.5); Segmented Neutrophils % 78.7 %
[2019-04-04] MEDS: Budesonide/Formoterol 160/4.5 1 PUFF INH IH SCH ×2 (11:31→21:16)
[2019-04-04 11:51] LABS: VBG Ionized Calcium 1.33 mmol/L (1.15-1.35)
[2019-04-04] MEDS ORDERED: 0.9 % Sodium Chloride 250 ML IVC SCH (12:30)
[2019-04-04 14:23] LABS: VBG Ionized Calcium 1.32 mmol/L (1.15-1.35)
[2019-04-04] MEDS ORDERED: Clinimix E 5%-15% SOLUTION 2,000 ML with MVI, adult with vitamin K 10 ML, Trace Eleme... IVC SCH (17:00)
[2019-04-04 17:10] LABS: VBG Ionized Calcium 1.27 mmol/L (1.15-1.35)
[2019-04-04 21:57] LABS: VBG Ionized Calcium 1.28 mmol/L (1.15-1.35)
[2019-04-05] MEDS: Dexmedetomidine HCl 400 MCG/100 ML MLS IVC SCH ×4 (00:59→20:42)
[2019-04-05] MEDS: *HR* Heparin 5,000 UNIT/ML VIAL CRRT PRN ×2 (01:22→23:34)
[2019-04-05] MEDS: FentaNYL (PF) 1,000 MCG in 0.9 % Sodium Chloride 80 ML IVC SCH ×3 (02:35→22:14)
[2019-04-05] MEDS: PrismaSATE BGK 4/2.5 5,000 ML CRRT SCH ×6 (02:57→20:46)
[2019-04-05] MEDS: Ipratropium/Albuterol Neb 3 ML IH SCH ×4 (03:21→21:28)
[2019-04-05 04:11] LABS: VBG Ionized Calcium 1.27 mmol/L (1.15-1.35)
[2019-04-05 04:13] LABS: Basophils % 0.2 %; Eosinophils # 0.1 K/mcL (0.0-0.6); Hematocrit 28.4 % (35.3-44.9); Hemoglobin 8.5 g/dL (11.5-15.4); Immature Granulocytes % 0.6 % (0-4); Lymphocytes # 1.1 K/mcL (0.6-4.6); Mean Corpuscular HGB Conc 29.9 g/dL (31.6-35.5); Mean Corpuscular Volume 86.9 fL (83.0-100.0); Mean Platelet Volume 11.1 fL (9.4-12.4); Monocytes # 0.9 K/mcL (0.0-1.3); Monocytes % 8.5 %; Neutrophils # 8.4 K/mcL (1.6-8.9); Nucleated Red Blood Cells 0.2 /100 WBC (0); Platelet Count 177 K/mcL (140-400); Red Blood Count 3.27 M/mcL (3.82-4.97); Red Cell Distribution Width 19.8 % (11.5-14.5); Segmented Neutrophils % 79.7 %; White Blood Count 10.5 K/mcL (4.3-11.1)
[2019-04-05] MEDS: Artificial Tears SOLN 15 ML BOTTLE BOTH EYES SCH ×5 (04:23→20:27)
[2019-04-05] MEDS: Insulin LISPRO 300 UNITS/3 ML VIAL SQ SCH ×5 (04:24→20:27)
[2019-04-05 04:36] LABS: Phosphorous 2.8 mg/dL (2.7-4.5)
[2019-04-05 04:37] LABS: Alanine Aminotransferase 162 Units/L (7-52); Albumin 2.3 g/dL (3.5-5.7); Albumin/Globulin Ratio 0.9 (1.1-2.2); Alkaline Phosphatase 56 Units/L (34-104); Aspartate Amino Transferase 42 Units/L (13-39); BUN/Creatinine Ratio 28 (6-26); Blood Urea Nitrogen 23 mg/dL (8-23); Calcium 8.8 mg/dL (8.6-10.3); Carbon Dioxide 30 mEq/L (23-29); Chloride 103 mEq/L (98-107); Globulin 2.6 g/dL (2.4-3.5); Glucose 345 mg/dL (70-105); Osmolality,Calculated 305 (280-300); Potassium 4.5 mEq/L (3.5-5.1); Sodium 139 mEq/L (136-145); Total Protein 4.9 g/dL (6.4-8.9); eGFR For African Americans > 60 (> 60); eGFR For Non-African Americans > 60 (> 60)
[2019-04-05 04:59] LABS: ABG Base Excess 3 mEq/L (-2 to 3); ABG HCO3 30 mEq/L (21-27); ABG Oxygen Saturation 94 % (95-98); ABG PCO2 57 mmHg (35-45); ABG PH 7.33 pH Units (7.32-7.45); ABG PO2 80 mmHg (85-104); ABG TCO2 32 mEq/L (20-26); Blood Gas Modality AF; Blood Gas VT 400 cc
[2019-04-05] MEDS: Pantoprazole 40 MG VIAL IVP SCH ×2 (06:32→16:44)
[2019-04-05] MEDS: *HR* Heparin 5,000 UNIT/ML VIAL SQ SCH ×3 (06:32→20:27)
[2019-04-05] MEDS: Chlorhexidine Rinse 15 ML MOUTHWASH MM SCH ×2 (08:39→20:27)
[2019-04-05] MEDS: Piperacillin/Tazobactam 3.375 GM in 0.9 % Sodium Chloride Mini Bag 100 ML IVPB SCH ×2 (08:39→15:50)
[2019-04-05] MEDS: Nystatin POWDER 30 GM BOTTLE TP SCH ×3 (08:43→20:27)
[2019-04-05] MEDS: Phenylephrine 10 MG in 0.9 % Sodium Chloride 250 ML IVC SCH (08:45)
[2019-04-05] MEDS: Budesonide/Formoterol 160/4.5 1 PUFF INH IH SCH ×2 (09:12→21:29)
[2019-04-05 10:34] LABS: VBG Ionized Calcium 1.26 mmol/L (1.15-1.35)
[2019-04-05] MEDS: Insulin DETEMIR 100 UNIT/ML X5UNITS SQ SCH ×2 (12:10→20:32)
[2019-04-05] MEDS: Calcium Chloride 4,000 MG in 0.9 % Sodium Chloride 1,000 ML CRRT SCH (13:30)
[2019-04-05 16:26] LABS: VBG Ionized Calcium 1.26 mmol/L (1.15-1.35)
[2019-04-05] MEDS ORDERED: Clinimix E 5%-15% SOLUTION 2,000 ML with MVI, adult with vitamin K 10 ML, Trace Eleme... IVC SCH (17:00)
[2019-04-05] MEDS: Norepinephrine 4 MG in 0.9 % Sodium Chloride 250 ML IVC SCH (17:00)
[2019-04-05 22:38] LABS: VBG Ionized Calcium 1.18 mmol/L (1.15-1.35)
[2019-04-05] MEDS: 0.9 % Sodium Chloride 1,000 ML PRIME PRN ×2 (23:00→23:37)
[2019-04-06] MEDS: Piperacillin/Tazobactam 3.375 GM in 0.9 % Sodium Chloride Mini Bag 100 ML IVPB SCH ×3 (00:06→16:39)
[2019-04-06] MEDS: Artificial Tears SOLN 15 ML BOTTLE BOTH EYES SCH ×6 (00:07→20:19)
[2019-04-06] MEDS: Insulin LISPRO 300 UNITS/3 ML VIAL SQ SCH ×6 (00:08→20:20)
[2019-04-06] MEDS: Dexmedetomidine HCl 400 MCG/100 ML MLS IVC SCH ×5 (00:11→23:06)
[2019-04-06] MEDS: PrismaSATE BGK 4/2.5 5,000 ML CRRT SCH ×9 (01:00→22:21)
[2019-04-06] MEDS: Ipratropium/Albuterol Neb 3 ML IH SCH ×4 (03:13→21:42)
[2019-04-06 04:24] LABS: Hematocrit 26.6 % (35.3-44.9)
[2019-04-06 04:25] LABS: Basophils % 0.3 %; Eosinophils # 0.1 K/mcL (0.0-0.6); Eosinophils % 0.8 %; Hemoglobin 8.1 g/dL (11.5-15.4); Immature Granulocytes % 0.8 % (0-4); Lymphocytes # 0.8 K/mcL (0.6-4.6); Lymphocytes % 6.2 %; Mean Corpuscular HGB Conc 30.5 g/dL (31.6-35.5); Mean Corpuscular Hemoglobin 26.6 pg (28.0-33.3); Mean Corpuscular Volume 87.2 fL (83.0-100.0); Mean Platelet Volume 10.7 fL (9.4-12.4); Monocytes # 1.2 K/mcL (0.0-1.3); Monocytes % 8.9 %; Nucleated Red Blood Cells 0.3 /100 WBC (0); Platelet Count 180 K/mcL (140-400); Red Blood Count 3.05 M/mcL (3.82-4.97); Red Cell Distribution Width 19.4 % (11.5-14.5); White Blood Count 13.2 K/mcL (4.3-11.1)
[2019-04-06 04:45] LABS: Hypochromasia Present (Not Present); Ovalocytes 2+ (Not Present); Platelet Estimate Decreased (Normal)
[2019-04-06 04:46] LABS: BUN/Creatinine Ratio 27 (6-26); Blood Urea Nitrogen 24 mg/dL (8-23); Calcium 8.4 mg/dL (8.6-10.3); Carbon Dioxide 31 mEq/L (23-29); Chloride 103 mEq/L (98-107); Glucose 265 mg/dL (70-105); Osmolality,Calculated 301 (280-300); Phosphorous 4.6 mg/dL (2.7-4.5); Potassium 4.1 mEq/L (3.5-5.1); Sodium 139 mEq/L (136-145); eGFR For African Americans > 60 (> 60); eGFR For Non-African Americans > 60 (> 60)
[2019-04-06 04:55] LABS: ABG Base Excess 3 mEq/L (-2 to 3); ABG HCO3 30 mEq/L (21-27); ABG Oxygen Saturation 95 % (95-98); ABG PCO2 60 mmHg (35-45); ABG PH 7.31 pH Units (7.32-7.45); ABG PO2 83 mmHg (85-104); ABG TCO2 32 mEq/L (20-26); Blood Gas Modality AF; Blood Gas VT 400 cc
[2019-04-06] MEDS: Pantoprazole 40 MG VIAL IVP SCH (06:34)
[2019-04-06] MEDS: *HR* Heparin 5,000 UNIT/ML VIAL SQ SCH ×3 (06:35→21:45)
[2019-04-06 06:58] LABS: VBG Ionized Calcium 1.07 mmol/L (1.15-1.35)
[2019-04-06] MEDS: Chlorhexidine Rinse 15 ML MOUTHWASH MM SCH ×2 (08:27→20:19)
[2019-04-06] MEDS: Nystatin POWDER 30 GM BOTTLE TP SCH ×3 (08:30→20:20)
[2019-04-06] MEDS: Budesonide/Formoterol 160/4.5 1 PUFF INH IH SCH ×2 (09:45→21:43)
[2019-04-06 10:10] LABS: VBG Ionized Calcium 1.07 mmol/L (1.15-1.35); VBG PH 7.31 pH Units (7.32-7.42)
[2019-04-06] MEDS ORDERED: *HR* Alteplase (Cathflo) 2 MG VIAL IVP PRN (10:19)
[2019-04-06] MEDS ORDERED: *HR* Heparin 5,000 UNIT/ML VIAL IVP PRN (10:19)
[2019-04-06] MEDS: Insulin DETEMIR 100 UNIT/ML X5UNITS SQ SCH ×2 (10:36→20:20)
[2019-04-06] MEDS ORDERED: Insulin DETEMIR 100 UNIT/ML X5UNITS SQ ONE (11:30)
[2019-04-06] MEDS: Calcium Chloride 4,000 MG in 0.9 % Sodium Chloride 1,000 ML CRRT SCH (16:38)
[2019-04-06] MEDS ORDERED: Clinimix E 5%-15% SOLUTION 2,000 ML, Parenteral Amino Acid 10% 250 ML with MVI, adult ... IVC SCH ×2 (17:00)
[2019-04-06 17:13] LABS: VBG Ionized Calcium 1.06 mmol/L (1.15-1.35); VBG PH 7.29 pH Units (7.32-7.42)
[2019-04-06] MEDS: FentaNYL (PF) 1,000 MCG in 0.9 % Sodium Chloride 80 ML IVC SCH (18:47)
[2019-04-06 19:09] LABS: VBG Ionized Calcium 1.12 mmol/L (1.15-1.35)
[2019-04-07] MEDS: Piperacillin/Tazobactam 3.375 GM in 0.9 % Sodium Chloride Mini Bag 100 ML IVPB SCH ×3 (00:09→16:39)
[2019-04-07] MEDS: Insulin LISPRO 300 UNITS/3 ML VIAL SQ SCH ×6 (00:09→20:45)
[2019-04-07] MEDS: Artificial Tears SOLN 15 ML BOTTLE BOTH EYES SCH ×6 (00:10→20:42)
[2019-04-07 01:19] LABS: VBG Ionized Calcium 1.04 mmol/L (1.15-1.35)
[2019-04-07] MEDS: Dexmedetomidine HCl 400 MCG/100 ML MLS IVC SCH ×4 (02:08→18:48)
[2019-04-07] MEDS: Norepinephrine 4 MG in 0.9 % Sodium Chloride 250 ML IVC SCH (03:23)
[2019-04-07] MEDS: PrismaSATE BGK 4/2.5 5,000 ML CRRT SCH ×8 (03:25→18:53)
[2019-04-07] MEDS: Ipratropium/Albuterol Neb 3 ML IH SCH ×4 (03:27→21:44)
[2019-04-07 03:52] LABS: VBG Ionized Calcium 0.99 mmol/L (1.15-1.35)
[2019-04-07 03:57] LABS: Basophils % 0.2 %; Eosinophils # 0.3 K/mcL (0.0-0.6); Eosinophils % 1.7 %; Hematocrit 25.8 % (35.3-44.9); Hemoglobin 7.7 g/dL (11.5-15.4); Immature Granulocytes % 0.8 % (0-4); Lymphocytes # 0.9 K/mcL (0.6-4.6); Lymphocytes % 5.6 %; Mean Corpuscular HGB Conc 29.8 g/dL (31.6-35.5); Mean Corpuscular Hemoglobin 26.3 pg (28.0-33.3); Mean Corpuscular Volume 88.1 fL (83.0-100.0); Mean Platelet Volume 11.1 fL (9.4-12.4); Monocytes # 1.2 K/mcL (0.0-1.3); Monocytes % 7.5 %; Neutrophils # 12.9 K/mcL (1.6-8.9); Nucleated Red Blood Cells 0.3 /100 WBC (0); Platelet Count 188 K/mcL (140-400); Red Blood Count 2.93 M/mcL (3.82-4.97); Segmented Neutrophils % 84.2 %; White Blood Count 15.4 K/mcL (4.3-11.1)
[2019-04-07] MEDS: Calcium Gluconate 1gm/50mL 1 GM/50 ML BAG IVPB PRN (03:59)
[2019-04-07 04:13] LABS: BUN/Creatinine Ratio 27 (6-26); Blood Urea Nitrogen 24 mg/dL (8-23); Calcium 8.7 mg/dL (8.6-10.3); Carbon Dioxide 30 mEq/L (23-29); Chloride 100 mEq/L (98-107); Glucose 195 mg/dL (70-105); Magnesium 1.8 mg/dL (1.6-2.6); Osmolality,Calculated 293 (280-300); Phosphorous 2.4 mg/dL (2.7-4.5); Sodium 137 mEq/L (136-145); eGFR For African Americans > 60 (> 60); eGFR For Non-African Americans > 60 (> 60)
[2019-04-07 05:29] LABS: ABG Base Excess 5 mEq/L (-2 to 3); ABG HCO3 31 mEq/L (21-27); ABG Oxygen Saturation 96 % (95-98); ABG PCO2 53 mmHg (35-45); ABG PH 7.38 pH Units (7.32-7.45); ABG PO2 83 mmHg (85-104); ABG TCO2 33 mEq/L (20-26); Blood Gas VT 400 cc
[2019-04-07] MEDS: *HR* Heparin 5,000 UNIT/ML VIAL SQ SCH ×3 (05:29→22:11)
[2019-04-07 05:38] LABS: VBG Ionized Calcium 1.05 mmol/L (1.15-1.35)
[2019-04-07 07:13] LABS: VBG Ionized Calcium 1.04 mmol/L (1.15-1.35)
[2019-04-07] MEDS: Chlorhexidine Rinse 15 ML MOUTHWASH MM SCH ×2 (07:53→20:45)
[2019-04-07] MEDS: Calcium Chloride 4,000 MG in 0.9 % Sodium Chloride 1,000 ML CRRT SCH ×2 (08:08→18:12)
[2019-04-07] MEDS: Budesonide/Formoterol 160/4.5 1 PUFF INH IH SCH ×2 (08:23→21:44)
[2019-04-07] MEDS: Nystatin POWDER 30 GM BOTTLE TP SCH ×3 (09:01→20:45)
[2019-04-07] MEDS: Pantoprazole 40 MG VIAL IVP SCH (09:17)
[2019-04-07] MEDS: Insulin DETEMIR 100 UNIT/ML X5UNITS SQ SCH ×2 (09:17→22:11)
[2019-04-07 09:29] LABS: VBG Ionized Calcium 1.05 mmol/L (1.15-1.35)
[2019-04-07] MEDS ORDERED: Insulin DETEMIR 100 UNIT/ML X5UNITS SQ ONE (09:51)
[2019-04-07] MEDS: FentaNYL (PF) 1,000 MCG in 0.9 % Sodium Chloride 80 ML IVC SCH (10:17)
[2019-04-07 12:10] LABS: VBG Ionized Calcium 1.08 mmol/L (1.15-1.35)
[2019-04-07 15:11] LABS: VBG Ionized Calcium 1.06 mmol/L (1.15-1.35)
[2019-04-07] MEDS ORDERED: Clinimix E 5%-15% SOLUTION 2,000 ML, Parenteral Amino Acid 10% 250 ML with MVI, adult ... IVC SCH (17:00)
[2019-04-07 17:53] LABS: VBG Ionized Calcium 1.09 mmol/L (1.15-1.35)
[2019-04-07 20:33] LABS: VBG Ionized Calcium 1.12 mmol/L (1.15-1.35)
[2019-04-08] MEDS: PrismaSATE BGK 4/2.5 5,000 ML CRRT SCH ×10 (00:16→22:00)
[2019-04-08] MEDS: Norepinephrine 4 MG in 0.9 % Sodium Chloride 250 ML IVC SCH (00:17)
[2019-04-08] MEDS: Insulin LISPRO 300 UNITS/3 ML VIAL SQ SCH ×7 (00:18→23:51)
[2019-04-08] MEDS: Artificial Tears SOLN 15 ML BOTTLE BOTH EYES SCH ×3 (00:19→07:40)
[2019-04-08] MEDS: Piperacillin/Tazobactam 3.375 GM in 0.9 % Sodium Chloride Mini Bag 100 ML IVPB SCH ×4 (00:22→23:53)
[2019-04-08] MEDS: *HR* Heparin 5,000 UNIT/ML VIAL CRRT PRN (02:09)
[2019-04-08 02:18] LABS: VBG Ionized Calcium 1.24 mmol/L (1.15-1.35)
[2019-04-08] MEDS: Calcium Chloride 4,000 MG in 0.9 % Sodium Chloride 1,000 ML CRRT SCH ×3 (03:00→20:21)
[2019-04-08] MEDS: Ipratropium/Albuterol Neb 3 ML IH SCH ×4 (03:40→21:52)
[2019-04-08 04:28] LABS: BUN/Creatinine Ratio 26 (6-26); Blood Urea Nitrogen 26 mg/dL (8-23); Calcium 10.5 mg/dL (8.6-10.3); Carbon Dioxide 34 mEq/L (23-29); Chloride 101 mEq/L (98-107); Glucose 96 mg/dL (70-105); Magnesium 1.9 mg/dL (1.6-2.6); Osmolality,Calculated 293 (280-300); Phosphorous 2.9 mg/dL (2.7-4.5); Potassium 4.3 mEq/L (3.5-5.1); Sodium 139 mEq/L (136-145); eGFR For African Americans > 60 (> 60); eGFR For Non-African Americans 54 (> 60)
[2019-04-08] MEDS: *HR* Heparin 5,000 UNIT/ML VIAL SQ SCH ×3 (05:07→22:33)
[2019-04-08] MEDS: Pantoprazole 40 MG VIAL IVP SCH (07:41)
[2019-04-08] MEDS: Chlorhexidine Rinse 15 ML MOUTHWASH MM SCH (07:41)
[2019-04-08] MEDS: Insulin DETEMIR 100 UNIT/ML X5UNITS SQ SCH ×2 (07:41→19:58)
[2019-04-08] MEDS: Nystatin POWDER 30 GM BOTTLE TP SCH ×3 (07:42→20:02)
[2019-04-08 08:38] LABS: Basophils # 0.1 K/mcL (0.0-0.2); Basophils % 0.4 %; Eosinophils # 0.3 K/mcL (0.0-0.6); Eosinophils % 1.7 %; Hematocrit 26.3 % (35.3-44.9); Hemoglobin 8.2 g/dL (11.5-15.4); Immature Granulocytes % 3.2 % (0-4); Lymphocytes # 1.5 K/mcL (0.6-4.6); Mean Corpuscular HGB Conc 31.2 g/dL (31.6-35.5); Mean Corpuscular Volume 86.5 fL (83.0-100.0); Mean Platelet Volume 10.9 fL (9.4-12.4); Monocytes # 1.2 K/mcL (0.0-1.3); Monocytes % 7.5 %; Neutrophils # 12.7 K/mcL (1.6-8.9); Nucleated Red Blood Cells 0.4 /100 WBC (0); Platelet Count 255 K/mcL (140-400); Red Blood Count 3.04 M/mcL (3.82-4.97); Red Cell Distribution Width 21.3 % (11.5-14.5); Segmented Neutrophils % 78.2 %; White Blood Count 16.2 K/mcL (4.3-11.1)
[2019-04-08 08:42] LABS: VBG Ionized Calcium 1.19 mmol/L (1.15-1.35)
[2019-04-08] MEDS: FentaNYL (PF) 1,000 MCG in 0.9 % Sodium Chloride 80 ML IVC SCH (10:00)
[2019-04-08] MEDS: Budesonide/Formoterol 160/4.5 1 PUFF INH IH SCH ×2 (10:20→21:52)
[2019-04-08 14:38] LABS: VBG Ionized Calcium 1.15 mmol/L (1.15-1.35)
[2019-04-08] MEDS ORDERED: Clinimix E 5%-15% SOLUTION 2,000 ML, Parenteral Amino Acid 10% 250 ML with MVI, adult ... IVC SCH (17:00)
[2019-04-08 20:17] LABS: VBG Ionized Calcium 1.05 mmol/L (1.15-1.35)
[2019-04-08 22:35] LABS: VBG Ionized Calcium 1.03 mmol/L (1.15-1.35)
[2019-04-09 00:31] LABS: VBG Ionized Calcium 0.94 mmol/L (1.15-1.35)
[2019-04-09] MEDS: Calcium Gluconate 1gm/50mL 1 GM/50 ML BAG IVPB PRN ×2 (00:39→02:41)
[2019-04-09] MEDS: *HR* LORazepam 2 MG/ML VIAL IVP PRN (00:39)
[2019-04-09] MEDS: Norepinephrine 4 MG in 0.9 % Sodium Chloride 250 ML IVC SCH ×2 (02:14→08:48)
[2019-04-09 02:31] LABS: VBG Ionized Calcium 0.97 mmol/L (1.15-1.35)
[2019-04-09] MEDS ORDERED: EPINEPHrine 1 MG in D5% in Water 250 ML IVC SCH (03:45)
[2019-04-09] MEDS: Ipratropium/Albuterol Neb 3 ML IH SCH ×2 (03:47→09:46)
[2019-04-09] MEDS ORDERED: Vasopressin 40 UNIT in D5% in Water 100 ML IVC SCH (04:00)
[2019-04-09] MEDS: Insulin LISPRO 300 UNITS/3 ML VIAL SQ SCH ×2 (04:13→08:47)
[2019-04-09] MEDS: *HR* Heparin 5,000 UNIT/ML VIAL CRRT PRN (04:16)
[2019-04-09 04:34] LABS: Basophils # 0.1 K/mcL (0.0-0.2); Basophils % 0.3 %; Eosinophils # 0.1 K/mcL (0.0-0.6); Eosinophils % 0.3 %; Hematocrit 27.5 % (35.3-44.9); Hemoglobin 7.9 g/dL (11.5-15.4); Immature Granulocytes % 10.7 % (0-4); Lymphocytes # 1.9 K/mcL (0.6-4.6); Lymphocytes % 7.2 %; Mean Corpuscular HGB Conc 28.7 g/dL (31.6-35.5); Mean Corpuscular Hemoglobin 26.3 pg (28.0-33.3); Mean Corpuscular Volume 91.7 fL (83.0-100.0); Mean Platelet Volume 11.3 fL (9.4-12.4); Monocytes # 2.1 K/mcL (0.0-1.3); Neutrophils # 19.3 K/mcL (1.6-8.9); Nucleated Red Blood Cells 1.4 /100 WBC (0); Platelet Count 282 K/mcL (140-400); Segmented Neutrophils % 73.5 %; White Blood Count 26.3 K/mcL (4.3-11.1)
[2019-04-09 04:44] LABS: BUN/Creatinine Ratio 24 (6-26); Blood Urea Nitrogen 22 mg/dL (8-23); Calcium 11.6 mg/dL (8.6-10.3); Carbon Dioxide 21 mEq/L (23-29); Chloride 101 mEq/L (98-107); Glucose 142 mg/dL (70-105); Magnesium 2.1 mg/dL (1.6-2.6); Osmolality,Calculated 294 (280-300); Phosphorous 3.9 mg/dL (2.7-4.5); Potassium 5.5 mEq/L (3.5-5.1); Sodium 139 mEq/L (136-145); eGFR For African Americans > 60 (> 60); eGFR For Non-African Americans 59 (> 60)
[2019-04-09 04:58] LABS: Anisocytosis 1+ (Not Present); Platelet Estimate Normal (Normal); Poikilocytosis 1+ (Not Present); Polychromasia 1+ (Not Present); Toxic Vacuolation Present (Not Present)
[2019-04-09] MEDS: *HR* Heparin 5,000 UNIT/ML VIAL SQ SCH (05:04)
[2019-04-09] MEDS: Pantoprazole 40 MG VIAL IVP SCH (08:47)
[2019-04-09] MEDS: Insulin DETEMIR 100 UNIT/ML X5UNITS SQ SCH (08:47)
[2019-04-09] MEDS: Nystatin POWDER 30 GM BOTTLE TP SCH (08:47)
[2019-04-09] MEDS: Piperacillin/Tazobactam 3.375 GM in 0.9 % Sodium Chloride Mini Bag 100 ML IVPB SCH (08:47)
[2019-04-09] MEDS: FentaNYL (PF) 1,000 MCG in 0.9 % Sodium Chloride 80 ML IVC SCH (08:48)
[2019-04-09] MEDS: Budesonide/Formoterol 160/4.5 1 PUFF INH IH SCH (09:47)
[2019-04-09 10:14] VITALS: BP 70/60
== END 2019-04-09 11:05 | disposition expired | DRG 329 ==
LOC: EMEROOARM 14:04 → 3BNU 14:04 → SUATTDRO 16:52 → 3BNU 18:27 → SUATTDRO 03-27 18:13 → 2NNU 03-29 22:37 → ICNU 03-31 06:08
PROVIDERS: ADMIT Internal Medicine; ATTEND Pharmacist